=== PATIENT | female | born 1985 | race Caucasian/White ===

== ENCOUNTER 2022-06-04 13:25 | Emergency (ER) | payer MEDICAID ==
[~2022-06-04] VITALS: Ht 165.1 cm; Wt 98.2 kg
[2022-06-04 16:41] LABS: COVID AG,FIA SOURCE NASOPHARYNGEAL
[2022-06-04 17:07] VITALS: BP 118/65
[2022-06-04] MEDS ORDERED: AMOX1TAB16 PO (17:39)
[2022-06-04] MEDS ORDERED: OXYM30SP27 NASAL (17:39)
[2022-06-04] MEDS ORDERED: IBUP-2070 PO (17:40)
== END 2022-06-04 18:53 | disposition home or self-care (01) ==
LOC: EMS 13:28
DX: H66.92 Otitis media, unspecified, left ear (principal); R09.81 Nasal congestion; M19.90 Unspecified osteoarthritis, unspecified site; M79.7 Fibromyalgia; F12.90 Cannabis use, unspecified, uncomplicated; Z20.822 Contact with and (suspected) exposure to COVID-19
CPT/HCPCS: 99283

== ENCOUNTER 2022-10-14 10:14 | Emergency (ER) | payer MEDICAID ==
[~2022-10-14] VITALS: Ht 165.1 cm; Wt 93.6 kg
[~2022-10-14 10:14] MED LIST: AMOX1TAB16 PO; IBUP-2070 PO; OXYM30SP27 NASAL
[2022-10-14 12:57] VITALS: BP 131/78
== END 2022-10-14 13:10 | disposition home or self-care (01) ==
LOC: EMS 10:19
DX: S90.31XA Contusion of right foot, initial encounter (principal); M19.90 Unspecified osteoarthritis, unspecified site; E11.9 Type 2 diabetes mellitus without complications; M79.7 Fibromyalgia; F12.90 Cannabis use, unspecified, uncomplicated; Z91.018 Allergy to other foods; X58.XXXA Exposure to other specified factors, initial encounter; Y93.89 Activity, other specified; Y92.89 Other specified places as the place of occurrence of the external cause; Y99.8 Other external cause status
CPT/HCPCS: 82962; 99283